=== PATIENT | male | born 1995 | race Caucasian/White ===

== ENCOUNTER 2019-12-02 21:10 | Emergency (ER) | payer BC, OTHER ==
[2019-12-02] MEDS ORDERED: Sodium Chloride 0.9% 10 ML Syringe FLUSH PRN (21:15)
[2019-12-02] MEDS ORDERED: ceFAZolin 1 GM Vial IVPUSH ONE (21:15)
[2019-12-02] MEDS ORDERED: Ondansetron 4 MG/2 ML SDV IV ONE (21:15)
[2019-12-02] MEDS ORDERED: Morphine 4 MG/ML Syringe IVPUSH ONE ×2 (21:15→23:25)
[2019-12-02] MEDS ORDERED: fentaNYL 100 MCG/2 ML SDV IVPUSH ONE (21:35)
--- NOTE | 2019-12-02 21:36 | EDM.PDOC ---
ED HPI GENERAL MEDICAL PROBLEM - General Chief Complaint: Laceration Stated Complaint: LACERATION TO KNEE Time Seen by Provider: 12/02/19 21:10 Source of Information: Reports: Patient History Limitations: Reports: No Limitations - History of Present Illness INITIAL COMMENTS - FREE TEXT/NARRATIVE: Patient comes emergency department today from home with concerns of an injury to his right knee. Just prior to arrival the patient was using an ax to split some wood when it slipped and struck him on the right knee. This happened just prior to arrival. He complains of severe pain into his knee. He denies any paresthesia to the distal aspect of his leg. He has not tried to stand on his knee since he hit it. He is unsure of when his last tetanus shot was. Not tried to straighten his knee since the incident because it is too uncomfortable for him. Right Knee Pain Score (Numeric/FACES): 10 - Related Data Allergies Allergy/AdvReac Type Severity Reaction Status Date / Time cat dander Allergy Other Verified 12/02/19 21:31 Home Meds: Home Meds Sertraline [Zoloft] 1 tab PO DAILY 12/02/19 [History] ED ROS GENERAL - Review of Systems Review Of Systems: Comprehensive ROS is negative, except as noted in HPI. ED EXAM, SKIN/RASH Exam: See Below Exam Limited By: No Limitations General Appearance: Alert, WD/WN, Anxious Respiratory/Chest: No Respiratory Distress, Lungs Clear Cardiovascular: Normal Peripheral Pulses, Regular Rate, Rhythm Peripheral Pulses: 2+: Radial (L), Radial (R), Popliteal (L), Popliteal (R), Posterior Tibial (L), Posterior Tibial (R), Dorsalis Pedis (L), Dorsalis Pedis (R) GI/Abdominal: Normal Bowel Sounds, Soft Extremities: No: Normal Inspection (Examination of the right knee which is in flexion at this time. Just medial the patella there is about a 2 cm laceration that extends into the subcutaneous tissue. Attempting to straighten the knee there is a rather loud sucking sound that comes from the laceration and when the knee is flexed bubbles of air come out of the laceration. There is no crepitus. I did not assess Lockman's anterior drawer or varus or valgus because the patient is so uncomfortable. The rest of the right lower extremity is atra umatic. The patella is midline and slides appropriately.) Neurological: Alert, Oriented, Normal Cognition, No Motor/Sensory Deficits Psychiatric: Anxious Skin: Warm, Dry, Normal Color Course - Vital Signs Last Recorded V/S: Last Vital Signs Temp 99.6 F 12/02/19 23:22 Pulse 72 12/02/19 23:22 Resp 18 12/02/19 23:22 BP 121/59 L 12/02/19 23:22 Pulse Ox 97 12/02/19 23:22 - Orders/Labs/Meds Orders: Active Orders 24 hr Category Date Time Status Peripheral IV Insertion Adult [OM.PC] Stat Oth 12/02/19 21:15 Ordered Meds: Medications Discontinued Medications Generic Name Dose Route Start Last Admin Trade Name Freq PRN Reason Stop Dose Admin Cefazolin Sodium 2 gm 12/02/19 21:15 12/02/19 21:38 Ancef IVPUSH 12/02/19 21:16 2 gm ONETIME ONE Administration Diphenhydramine HCl 25 mg 12/03/19 00:13 12/03/19 00:19 Benadryl IVPUSH 12/03/19 00:14 25 mg ONETIME ONE Administration Diphenhydramine HCl Confirm 12/03/19 00:24 Benadryl Administered 12/03/19 00:25 Dose 50 mg .ROUTE .STK-MED ONE Diphtheria/Tetanus/Acell Pertussis 0.5 ml 12/02/19 23:32 12/02/19 23:41 Adacel IM 12/02/19 23:33 0.5 ml .ONCE ONE Administration Diphtheria/Tetanus/Acell Pertussis Confirm 12/02/19 23:46 Adacel Administered 12/02/19 23:47 Dose 0.5 ml .ROUTE .STK-MED ONE Fentanyl 50 mcg 12/02/19 21:35 Sublimaze IVPUSH 12/02/19 21:36 ONETIME ONE Hydromorphone HCl 1 mg 12/03/19 00:12 12/03/19 00:20 Dilaudid IV 12/03/19 00:13 1 mg ONETIME ONE Administration Hydromorphone HCl Confirm 12/03/19 00:23 Dilaudid Administered 12/03/19 00:24 Dose 1 mg .ROUTE .STK-MED ONE Morphine Sulfate 4 mg 12/02/19 21:15 12/02/19 21:24 Morphine IVPUSH 12/02/19 21:16 4 mg ONETIME ONE Administration Morphine Sulfate 4 mg 12/02/19 23:25 12/02/19 23:31 Morphine IVPUSH 12/02/19 23:26 4 mg ONETIME ONE Administration Ondansetron HCl 4 mg 12/02/19 21:15 12/02/19 21:22 Zofran IV 12/02/19 21:16 4 mg ONETIME ONE Administration Sodium Chloride 10 ml 12/02/19 21:15 Saline Flush FLUSH ASDIRECTED PRN Keep Vein Open - Re-Assessments/Exams Free Text/Narrative Re-Assessment/Exam: The patient is reluctant to receive any pain medication as his father overdosed on heroin. Although after much discussion I was able to talk him into small doses of morphine only. 2 g Ancef IV push. X-ray of the right knee per radiology shows no bony abnormality and questionably some air within the joint. When I review this extemporaneously by myself there is clearly air under the patella as well as inferior to the distal femur and proximal tibia. Question a small amount right effusion. Due to the concerns of entrance into the joint space I called and spoke with Dr. Stevens at [facility] in [place]. HPI ER course findings and concerns were relayed to him especially my concerns of emphyzema in the joint. He agrees that there is clear air within the joint. He accepted the patient in transfer at this time. His tetanus immunization was updated and he agreed to Benadryl and DIlaudid for the transfer and will go by private vehicle to [facility]. Departure - Departure Time of Disposition: 23:33 Disposition: DC/Tfer to [facility] 02 Clinical Impression: Laceration of knee with complication Qualifiers: Encounter type: initial encounter Laterality: right Qualified Code(s): S81.011A - Laceration without foreign body, right knee, initial encounter Injury of right knee Qualifiers: Encounter type: initial encounter Qualified Code(s): S89.91XA - Unspecified injury of right lower leg, initial encounter - Discharge Information Referrals: PCP,None [Primary Care Provider] - Forms: ED Department Discharge, Interfacility Transfer EMTALA Additional Instructions: Go directly to the ED at [facility] in [place] DO NOT EAT OR DRINK ANYTHING WHILE YOU ARE TRAVELING TO [place]. Drive safely. Sepsis Event Note (ED) - Evaluation Sepsis Screening Result: No Definite Risk - My Orders Last 24 Hours: My Active Orders 12/02/19 21:15 Peripheral IV Insertion Adult [OM.PC] Stat - Assessment/Plan Last 24 Hours: My Active Orders 12/02/19 21:15 Peripheral IV Insertion Adult [OM.PC] Stat
[2019-12-02] MEDS ORDERED: Diphtheria,Pertussis(Acell),Tetanus Vaccine 0.5 ML Syringe IM ONE (23:32)
[2019-12-02] MEDS ORDERED: Diphtheria,Pertussis(Acell),Tetanus Vaccine 0.5 ML Syringe ONE (23:46)
[2019-12-03] MEDS ORDERED: HYDROmorphone 0.5 MG/0.5 ML Syringe IV ONE (00:12)
[2019-12-03] MEDS ORDERED: diphenhydrAMINE 50 MG/ML SDV IVPUSH ONE (00:13)
[2019-12-03] MEDS ORDERED: HYDROmorphone 1 MG/ML Syringe ONE (00:23)
[2019-12-03] MEDS ORDERED: diphenhydrAMINE 50 MG/ML SDV ONE (00:24)
--- NOTE | 2019-12-03 11:13 | CR ---
[id number] RAD/RAD Knee Right 1-2V Exam: RAD Knee Right 1-2V Indication:AXE TO KNEE Comparison: No prior imaging for comparison. Discussion: Pneumarthrosis, consistent with penetrating injury to the knee articulation. No radiographically evident fracture or dislocation. Orthopedic consultation recommended. Impression: Penetrating knee injury with pneumarthrosis. Dom Aviles MD 12/03/19 1112 Thank you for allowing us to participate in the care of your patient.
== END 2019-12-03 00:35 | disposition short-term general hospital (02) ==
LOC: VM.ED 21:10
DX: S81.011A Laceration without foreign body, right knee, initial encounter (principal); Z23 Encounter for immunization; Z91.09 Other allergy status, other than to drugs and biological substances; Z79.899 Other long term (current) drug therapy; W01.198A Fall on same level from slipping, tripping and stumbling with subsequent striking against other object, initial encounter
CPT/HCPCS: 73560-RT; 90471; 90715; 96374; 96375; 96376; 99283; 99284-25; J0690; J1170; J1200; J2270; J2405